=== PATIENT | female | born 1950 | race African-American/Black ===

== ENCOUNTER 2019-08-23 13:33 | Emergency (ER) | payer MEDICARE, OTHER ==
[~2019-08-23] VITALS: Ht 172.7 cm; Wt 68.0 kg
[~2019-08-23 13:33] MED LIST: ACTOS30 MG OR; BENAZEPRIL40 M1 OR; CLONIDINE0.2 MG OR; DYRENIUM50 MG OR; GLYBURID MCR6 MG OR; HYDROCHLOROT25 MG OR; METFORMIN1000 MG OR; ZOCOR40 MG OR
[2019-08-23 15:09] LABS: URINE BLOOD DIPSTICK NEGATIVE (NEGATIVE); URINE COLOR YELLOW; URINE GLUCOSE - DIPSTICK 100 mg/dL (NEGATIVE); URINE KETONE TRACE mg/dL (NEGATIVE); URINE LEUK ESTERASE NEGATIVE (NEGATIVE); URINE NITRITE - DIPSTICK NEGATIVE (Negative); URINE PROTEIN - DIPSTICK >=300 mg/dL (NEG-TRACE); URINE SPECIFIC GRAVITY >=1.030
[2019-08-23 15:13] LABS: URINE BILIRUBIN - DIPSTICK SMALL (NEGATIVE)
[2019-08-23 15:14] LABS: BARBITURATES NEGATIVE (NEGATIVE); COCAINE NEGATIVE (NEGATIVE); METHADONE NEGATIVE (NEGATIVE); OXCYCODONE NEGATIVE (NEGATIVE); TETRAHYDROCANNABIONOL NEGATIVE (NEGATIVE); TRICYLIC ANTIDEPRESSANTS NEGATIVE (NEGATIVE)
[2019-08-23 15:29] VITALS: BP 191/100
[2019-08-23 16:47] LABS: URINE SQUAMOUS EPITHELIAL CELL FEW EPI/hpf (0-FEW)
== END 2019-08-23 15:20 | disposition left against medical advice (07) ==
LOC: ED 13:33
PROVIDERS: Family Medicine
DX: R41.0 Disorientation, unspecified (principal); E11.9 Type 2 diabetes mellitus without complications; I10 Essential (primary) hypertension; Z79.84 Long term (current) use of oral hypoglycemic drugs; Z91.19 Patient's noncompliance with other medical treatment and regimen

== ENCOUNTER 2019-12-06 | Emergency (ER) | payer MEDICARE, OTHER | END 2019-12-06 11:10 | disposition home or self-care (01) | DX: S01.00XD Unspecified open wound of scalp, subsequent encounter (principal); X58.XXXD Exposure to other specified factors, subsequent encounter; E11.9 Type 2 diabetes mellitus without complications; I10 Essential (primary) hypertension ==

== ENCOUNTER 2020-01-25 | Emergency (ER) | payer MEDICARE, OTHER | END 2020-01-25 10:29 | disposition home or self-care (01) | DX: S70.02XA Contusion of left hip, initial encounter (principal); E11.9 Type 2 diabetes mellitus without complications; I10 Essential (primary) hypertension; W01.0XXA Fall on same level from slipping, tripping and stumbling without subsequent striking against object, initial encounter; Z79.84 Long term (current) use of oral hypoglycemic drugs ==

== ENCOUNTER 2021-09-12 11:18 | Observation (INO) | payer MEDICARE, OTHER ==
[~2021-09-12] VITALS: Ht 172.7 cm; Wt 65.0 kg
--- NOTE | 2021-09-12 11:25 | NUR ---
PATIENT TO ROOM 13 VIA EMS
[2021-09-12 13:11] LABS: HEMATOCRIT 29.5 % (37.0-47.0); IMMATURE GRANULOCYTES 0.2 % (0.0-5.0); MEAN CELL VOLUME 88.3 fL CALC (80.0-100.0); MEAN CORPUSCULAR HGB 26.9 pG CALC (26.0-32.0); MEAN CORPUSCULAR HGB CONC 30.5 g/dL CAL (32.0-36.0); NEUT# 8.36 thou/uL (2.00-7.15); RED BLOOD COUNT 3.34 mill/uL (4.20-5.60); RED CELL DISTRI WIDTH 14.7 % (11.5-15.5)
[2021-09-12 13:25] LABS: ALBUMIN 3.7 g/dL (3.2-5.0); BILIRUBIN, TOTAL 0.3 mg/dL (0.0-1.4); CREATININE 2.4 mg/dL (0.5-1.0); POTASSIUM 3.5 mmol/l (3.5-5.1); TOTAL PROTEIN 7.3 g/dL (6.3-8.2)
--- NOTE | 2021-09-12 13:49 | NUR ---
Reassessment of patient completed. No distress noted.
--- NOTE | 2021-09-12 15:45 | NUR ---
URINE COLLECTION SUCCESSFUL ON THIRD TRY. PATIENT STATES SHE WAS UNABLE TO COLLECT URINE IN [facility] PREVIOUSLY.
[2021-09-12 15:56] LABS: URINE BILIRUBIN - DIPSTICK NEGATIVE (NEGATIVE); URINE BLOOD DIPSTICK NEGATIVE (NEGATIVE); URINE COLOR YELLOW; URINE GLUCOSE - DIPSTICK NEGATIVE (NEGATIVE); URINE KETONE NEGATIVE (NEGATIVE); URINE LEUK ESTERASE NEGATIVE (NEGATIVE); URINE NITRITE - DIPSTICK NEGATIVE (Negative); URINE PROTEIN - DIPSTICK 100 mg/dL (NEG-TRACE); URINE UROBILINOGEN - DIPSTICK 0.2 E.U./dL (0.2)
[2021-09-12 16:03] LABS: URINE RBC TNTC RBC/hpf (0-5); URINE SQUAMOUS EPITHELIAL CELL FEW EPI/hpf (0-FEW); URINE WBC 0-2 WBC/hpf (0-5)
--- NOTE | 2021-09-12 17:39 | NUR ---
REPORT CALLED TO MED/SURG NURSE.
--- NOTE | 2021-09-12 17:46 | NUR ---
PATIENTDOSE NOT KNOW HER MEDICATIONS
--- NOTE | 2021-09-12 18:20 | NUR ---
PATIENT TO FLLOR WHEN ROOM IS CLEAN
--- NOTE | 2021-09-12 19:00 | NUR ---
TRANSITION OF CARE-REPORT TO LISA URIBE
--- NOTE | 2021-09-12 19:09 | NUR ---
TELEPHONE CALL PLACED TO PATIENT'S SON KENRICK SOUTH PER FAMILY REQUEST. [phone]
--- NOTE | 2021-09-12 19:35 | NUR ---
REPORT REC'D PT AWWARE OF PLANNED ADMISSION NO NEEW COMPLAINTS OFFERED.
[2021-09-12 19:53] VITALS: BP 177/92
--- NOTE | 2021-09-12 19:53 | NUR ---
PT ARRIVED TO FLOOR VIA WHEELCHAIR ACCOMPANIED BY ER NURSE, PT AMBULATED TO BATHROOM WITH STEADY GAIT, PT ALERT AND ORIENTED X3, ORIENTED PT TO ROOM AND CALL LIGHT, DISCUSSED POC, PT VERBALIZED UNDERSTANDING. IVF INITIATED, SKIN INTACT. TEDS APPLIED. ADMISSION ASSESSMENT COMPLETED, PT VOICES NO NEEDS OR COMPLAINTS AT THIS TIME. CALL LIGHT IN REACH,CONTINUE TO MONITOR.
[2021-09-12 21:26] VITALS: BP 122/77
--- NOTE | 2021-09-12 21:27 | NUR ---
PT ARRIVED VIA WHEELCHAIR ACCOMPANIED BY ER NURSE. PT AMBULATORY WITH STEADY GAIT TO BATHROOM. PT ALERT AND ORIENTED X3, ORIENTED PT TO ROOM AND CALL LIGHT, DISCUSSED POC. PT AGREES, MEDICATED PER MAR. IVF INITIATED, SKIN INTACT. TEDS APPLIED, ADMISSION ASSESSMENT COMPLETED, CALL LIGHT IN REACH,CONTINUE TO MONITOR.
[2021-09-13] VITALS: BP 153/75
--- NOTE | 2021-09-13 | NUR ---
PT ASSISTED TO BATHROOM, NO SIGNS OF DISTRESS NOTED, RESP EVEN AND UNLABORED. PT VOICES NO NEEDS OR COMPLAINTS AT THIS TIME. CALL LIGHT IN REACH,CONTINUE TO MONITOR.
--- NOTE | 2021-09-13 03:57 | NUR ---
PT RESTING IN BED WITH EYES CLOSED, NO SIGNS OF DISTRESS NOTED, RESP EVEN AND UNLABORED. CALL LIGHT IN REACH,CONTINUE TO MONITOR.
[2021-09-13 04:00] VITALS: BP 161/76
[2021-09-13 06:04] LABS: HEMOGLOBIN 9.5 g/dl (12.0-16.0); IMMATURE GRANULOCYTES 0.1 % (0.0-5.0); MEAN CORPUSCULAR HGB 26.9 pG CALC (26.0-32.0); MEAN CORPUSCULAR HGB CONC 31.7 g/dL CAL (32.0-36.0); NEUT# 7.02 thou/uL (2.00-7.15); RED BLOOD COUNT 3.53 mill/uL (4.20-5.60); RED CELL DISTRI WIDTH 14.6 % (11.5-15.5)
[2021-09-13 06:26] LABS: ALBUMIN 3.7 g/dL (3.2-5.0); BILIRUBIN, TOTAL 0.4 mg/dL (0.0-1.4); CREATININE 1.8 mg/dL (0.5-1.0); POTASSIUM 4.1 mmol/l (3.5-5.1); TOTAL PROTEIN 7.1 g/dL (6.3-8.2)
--- NOTE | 2021-09-13 07:45 | NUR ---
BEDSIDE REPORT RECEIVED. PT SITTING UP TO BEDSIDE AT THIS TIME EATING BREAKFAST. ASSESSMENT PERFORMED. NO COMPLAINTS. WILL CONTINUE TO MONITOR.
[2021-09-13 08:00] VITALS: BP 160/90
--- NOTE | 2021-09-13 12:45 | NUR ---
Discharge instructions given. Patient verbalizes understanding of same. Discharged in stable condition via Wheelchair to Home with family. All belongings sent with pt.
[2021-09-13 12:57] VITALS: BP 156/72
--- NOTE | 2021-09-13 12:57 | NUR ---
SPOKE WITH EXECUTIVE SECRETARY ROXANN, EXPLAINED ALL D/C INSTRUCTION AND FOLLOW UP APTS THAT NEED BE MADE. SHE VERBALIZED UNDERSTANDING.
== END 2021-09-13 12:45 | disposition home or self-care (01) ==
LOC: ED 11:18 → ED-I 16:20 → ED 17:12 → MS2 17:13
PROVIDERS: Emergency Medicine; ADMIT Internal Medicine; ATTEND Internal Medicine
DX: R55 Syncope and collapse (principal); R31.0 Gross hematuria; D50.0 Iron deficiency anemia secondary to blood loss (chronic); I10 Essential (primary) hypertension; E11.9 Type 2 diabetes mellitus without complications; Z79.84 Long term (current) use of oral hypoglycemic drugs; Z20.822 Contact with and (suspected) exposure to COVID-19
CPT/HCPCS: G0378; J1650

== ENCOUNTER 2022-11-20 19:36 | Emergency (ER) | payer MEDICARE, OTHER ==
[~2022-11-20] VITALS: Ht 172.7 cm; Wt 72.7 kg
[2022-11-20] VITALS (13 sets, daily range): BP systolic 155–199; BP diastolic 66–121
[2022-11-20 20:07] LABS: BASO% 0.2 % (0-3); EOS% 0.1 % (0-8); HEMATOCRIT 31.3 % (37.0-47.0); HEMOGLOBIN 9.9 g/dl (12.0-16.0); IMMATURE GRANULOCYTES 0.2 % (0.0-5.0); LYMPH% 2.2 % (15-41); MEAN CELL VOLUME 92.9 fL CALC (80.0-100.0); MEAN CORPUSCULAR HGB 29.4 pG CALC (26.0-32.0); MEAN CORPUSCULAR HGB CONC 31.6 g/dL CAL (32.0-36.0); MONO% 4.1 % (2-13); NEUT# 12.44 thou/uL (2.00-7.15); NEUT% 93.2 % (42-76); RED BLOOD COUNT 3.37 mill/uL (4.20-5.60); RED CELL DISTRI WIDTH 13.9 % (11.5-15.5)
[2022-11-20 20:17] LABS: ALBUMIN 3.7 g/dL (3.2-5.0); ALKALINE PHOSPHATASE 125 u/l (38-126); ANION GAP 12 (6-22 (CALC)); BILIRUBIN, TOTAL 0.3 mg/dL (0.0-1.4); BUN 36 mg/dL (8-23); BUN/CREATININE RATIO 13 (12-20 (CALC)); CARBON DIOXIDE 21 mmol/l (22-30); CHLORIDE 108 mmol/l (95-108); CPK 109 u/l (30-165); CREATININE 2.8 mg/dL (0.5-1.0); GFR FOR AFR.AMER. 20 ML/MIN (>=60 (CALC)); GFR OTHER RACES 17 ML/MIN (>=60 (CALC)); POTASSIUM 3.8 mmol/l (3.5-5.1); SGOT/AST 36 u/l (9-36); SODIUM 138 mmol/l (137-146); TOTAL PROTEIN 7.3 g/dL (6.3-8.2)
[2022-11-20 20:29] LABS: MYOGLOBIN 416 ng/mL (0 - 62)
[2022-11-20 21:45] LABS: URINE BILIRUBIN - DIPSTICK NEGATIVE (NEGATIVE); URINE BLOOD DIPSTICK NEGATIVE (NEGATIVE); URINE COLOR YELLOW; URINE GLUCOSE - DIPSTICK 100 mg/dL (NEGATIVE); URINE KETONE NEGATIVE (NEGATIVE); URINE LEUK ESTERASE NEGATIVE (NEGATIVE); URINE PH 5.5 (4.5-8.0); URINE PROTEIN - DIPSTICK 100 mg/dL (NEG-TRACE); URINE SPECIFIC GRAVITY 1.025; URINE UROBILINOGEN - DIPSTICK 0.2 E.U./dL (0.2)
[2022-11-20 21:47] LABS: URINE NITRITE - DIPSTICK NEGATIVE (Negative)
[2022-11-20 21:50] LABS: URINE BACTERIA FEW hpf; URINE RBC 0-2 RBC/hpf (0-5)
[2022-11-20 21:51] LABS: URINE SQUAMOUS EPITHELIAL CELL FEW EPI/hpf (0-FEW)
[2022-11-20] MEDS ORDERED: TAM75CAP PO (22:13)
== END 2022-11-20 22:53 | disposition home or self-care (01) ==
LOC: ED 19:36
PROVIDERS: Family Medicine
DX: J10.1 Influenza due to other identified influenza virus with other respiratory manifestations (principal); I10 Essential (primary) hypertension; E11.9 Type 2 diabetes mellitus without complications; Z79.84 Long term (current) use of oral hypoglycemic drugs; Z20.822 Contact with and (suspected) exposure to COVID-19

== ENCOUNTER 2023-08-20 13:05 | Inpatient (IN) | payer MEDICARE, OTHER ==
[~2023-08-20] VITALS: Ht 172.7 cm; Wt 63.3 kg
[2023-08-20] VITALS (14 sets, daily range): BP systolic 114–167; BP diastolic 56–95
[~2023-08-20 13:05] MED LIST changes: +TAM75CAP PO
[2023-08-20 13:41] LABS: BASO% 0.2 % (0-3); EOS% 0.6 % (0-8); HEMOGLOBIN 11.1 g/dl (12.0-16.0); IMMATURE GRANULOCYTES 0.3 % (0.0-5.0); LYMPH% 11.2 % (15-41); MEAN CELL VOLUME 93.3 fL CALC (80.0-100.0); MEAN CORPUSCULAR HGB 29.6 pG CALC (26.0-32.0); MEAN CORPUSCULAR HGB CONC 31.7 g/dL CAL (32.0-36.0); MONO% 5.6 % (2-13); NEUT# 9.03 thou/uL (2.00-7.15); NEUT% 82.1 % (42-76); RED BLOOD COUNT 3.75 mill/uL (4.20-5.60); RED CELL DISTRI WIDTH 12.5 % (11.5-15.5)
[2023-08-20 13:59] LABS: INTERNATIONAL NORMALIZED RATIO 1.2 RATIO (0.7-1.3)
[2023-08-20 14:05] LABS: ALBUMIN 4.1 g/dL (3.2-5.0); ANION GAP 16 (6-22 (CALC)); BUN 41 mg/dL (8-23); CALCULATED LDLCHOLESTEROL 134 mg/dL (62-129 (CALC)); CARBON DIOXIDE 20 mmol/l (22-30); CHLORIDE 107 mmol/l (95-108); HDL CHOLESTEROL 54 mg/dL (39.0-59.0); SGOT/AST 33 u/l (9-36); SODIUM 139 mmol/l (137-146); TOTAL CHOLESTEROL 215 mg/dl (0-199); TOTAL PROTEIN 8.2 g/dL (6.3-8.2); TOTAL TRIGLYCERIDES 137 mg/dl (0-149); VLDL CHOLESTROL 27 mg/dl (0-48 (CALC))
[2023-08-20 14:11] LABS: ALKALINE PHOSPHATASE 188 u/l (38-126); BILIRUBIN, TOTAL 0.5 mg/dL (0.02-1.3); BUN/CREATININE RATIO 10 (12-20 (CALC)); CREATININE 4.3 mg/dL (0.5-1.0); GFR FOR AFR.AMER. 12 ML/MIN (>=60 (CALC)); GFR OTHER RACES 10 ML/MIN (>=60 (CALC))
[2023-08-20 14:41] LABS: URINE BACTERIA FEW hpf; URINE BLOOD DIPSTICK Negative (NEGATIVE); URINE COLOR Yellow; URINE GLUCOSE - DIPSTICK Negative (NEGATIVE); URINE KETONE Trace mg/dL (NEGATIVE); URINE LEUK ESTERASE Small (NEGATIVE); URINE NITRITE - DIPSTICK Negative (Negative); URINE PH 5.5 (4.5-8.0); URINE PROTEIN - DIPSTICK >=300 mg/dL (NEG-TRACE); URINE SPECIFIC GRAVITY >=1.030; URINE SQUAMOUS EPITHELIAL CELL FEW EPI/hpf (0-FEW); URINE UROBILINOGEN - DIPSTICK 0.2 E.U./dL (0.2)
[2023-08-20] MEDS ORDERED: METFORMIN HCL1000 MG PO (15:31)
[2023-08-20] MEDS ORDERED: METOPROL TAR25 M1 PO (15:33)
[2023-08-20] MEDS ORDERED: APRESOLINE50 MG PO (15:34)
[2023-08-20] MEDS ORDERED: SEROQUEL25 MG (15:36)
[2023-08-20] MEDS ORDERED: NIFEDIPINE90 M1 PO (15:37)
[2023-08-20] MEDS ORDERED: ELIQUIS5 MG PO (15:38)
[2023-08-21 06:08] LABS: BASO% 0.4 % (0-3); EOS% 1.5 % (0-8); HEMOGLOBIN 9.8 g/dl (12.0-16.0); IMMATURE GRANULOCYTES 0.2 % (0.0-5.0); LYMPH% 20.5 % (15-41); MEAN CELL VOLUME 92.8 fL CALC (80.0-100.0); MEAN CORPUSCULAR HGB 29.3 pG CALC (26.0-32.0); MEAN CORPUSCULAR HGB CONC 31.6 g/dL CAL (32.0-36.0); MONO% 7.4 % (2-13); NEUT# 5.69 thou/uL (2.00-7.15); RED BLOOD COUNT 3.34 mill/uL (4.20-5.60); RED CELL DISTRI WIDTH 12.3 % (11.5-15.5)
[2023-08-21 06:23] LABS: ALBUMIN 3.4 g/dL (3.2-5.0); BILIRUBIN, TOTAL 0.4 mg/dL (0.02-1.3); CREATININE 3.9 mg/dL (0.5-1.0); POTASSIUM 3.8 mmol/l (3.5-5.1)
[2023-08-21 06:25] LABS: TOTAL PROTEIN 6.4 g/dL (6.3-8.2)
[2023-08-21 11:48] LABS: CHOLESTEROL HDL RATIO 3.7 (<4.4 (CALC))
[2023-08-21 19:48] VITALS: BP 158/87
[2023-08-22] VITALS (25 sets, daily range): BP systolic 52–220; BP diastolic 29–93
[2023-08-22 05:42] LABS: HEMATOCRIT 27.3 % (37.0-47.0); HEMOGLOBIN 8.9 g/dl (12.0-16.0); MEAN CELL VOLUME 93.2 fL CALC (80.0-100.0); MEAN CORPUSCULAR HGB 30.4 pG CALC (26.0-32.0); MEAN CORPUSCULAR HGB CONC 32.6 g/dL CAL (32.0-36.0); RED BLOOD COUNT 2.93 mill/uL (4.20-5.60); RED CELL DISTRI WIDTH 12.5 % (11.5-15.5)
[2023-08-22 06:01] LABS: BILIRUBIN, TOTAL 0.3 mg/dL (0.02-1.3); CREATININE 4.1 mg/dL (0.5-1.0); POTASSIUM 4.5 mmol/l (3.5-5.1); TOTAL PROTEIN 5.8 g/dL (6.3-8.2)
[2023-08-22 06:03] LABS: CREATININE 4.1 mg/dL (0.5-1.0); POTASSIUM 4.4 mmol/l (3.5-5.1)
[2023-08-23 05:46] LABS: HEMATOCRIT 31.3 % (37.0-47.0); HEMOGLOBIN 9.9 g/dl (12.0-16.0); MEAN CELL VOLUME 93.2 fL CALC (80.0-100.0); MEAN CORPUSCULAR HGB 29.5 pG CALC (26.0-32.0); MEAN CORPUSCULAR HGB CONC 31.6 g/dL CAL (32.0-36.0); RED BLOOD COUNT 3.36 mill/uL (4.20-5.60); RED CELL DISTRI WIDTH 12.6 % (11.5-15.5)
[2023-08-23 06:06] LABS: ALBUMIN 3.2 g/dL (3.2-5.0); BILIRUBIN, TOTAL 0.4 mg/dL (0.02-1.3); CREATININE 3.9 mg/dL (0.5-1.0); MAGNESIUM 2.1 mg/dL (1.6-2.3); POTASSIUM 4.5 mmol/l (3.5-5.1); TOTAL PROTEIN 6.3 g/dL (6.3-8.2)
[2023-08-23 08:53] VITALS: BP 134/71
[2023-08-23 14:51] VITALS: BP 150/85
[2023-08-23 14:53] VITALS: BP 150/85
[2023-08-23] MEDS ORDERED: ATORVASTATIN CA40 MG PO (14:59)
[2023-08-23] MEDS ORDERED: ASPIRIN81 MG PO (15:05)
== END 2023-08-23 16:45 | disposition home or self-care (01) | DRG 65 ==
LOC: ED 13:05 → ED-I 14:00 → ED 15:06 → ICU 15:07
PROVIDERS: Family Medicine; Internal Medicine Nephrology; Student in an Organized Health Care Education/Training Program; ADMIT Student in an Organized Health Care Education/Training Program; ATTEND Student in an Organized Health Care Education/Training Program
DX: I63.81 Other cerebral infarction due to occlusion or stenosis of small artery (principal); N17.9 Acute kidney failure, unspecified; N39.0 Urinary tract infection, site not specified; E87.20 Acidosis, unspecified; N18.4 Chronic kidney disease, stage 4 (severe); I45.2 Bifascicular block; R41.0 Disorientation, unspecified; R29.701 NIHSS score 1; I95.9 Hypotension, unspecified; E86.9 Volume depletion, unspecified; I12.9 Hypertensive chronic kidney disease with stage 1 through stage 4 chronic kidney disease, or unspecified chronic kidney disease; E11.22 Type 2 diabetes mellitus with diabetic chronic kidney disease; D63.1 Anemia in chronic kidney disease; F03.90 Unspecified dementia, unspecified severity, without behavioral disturbance, psychotic disturbance, mood disturbance, and anxiety; K59.00 Constipation, unspecified; B95.1 Streptococcus, group B, as the cause of diseases classified elsewhere; E78.5 Hyperlipidemia, unspecified; Z79.84 Long term (current) use of oral hypoglycemic drugs; Z79.01 Long term (current) use of anticoagulants; Z86.73 Personal history of transient ischemic attack (TIA), and cerebral infarction without residual deficits; Z20.822 Contact with and (suspected) exposure to COVID-19

== ENCOUNTER 2024-01-04 11:04 | Observation (INO) | payer MEDICARE, OTHER ==
[~2024-01-04] VITALS: Ht 172.7 cm; Wt 54.4 kg
[2024-01-04] VITALS (29 sets, daily range): BP systolic 157–228; BP diastolic 84–165
[~2024-01-04 11:04] MED LIST changes: +APRESOLINE50 MG PO; +ASPIRIN81 MG PO; +ATORVASTATIN CA40 MG PO; +ELIQUIS5 MG PO; +METFORMIN HCL1000 MG PO; +METOPROL TAR25 M1 PO; +NIFEDIPINE90 M1 PO; +SEROQUEL25 MG
--- NOTE | 2024-01-04 11:04 | NUR ---
PATIENT ARRIVED TO ER VIA EMS. PATIENT AWAKE AND STABLE. NO DISTRESS NOTED. PHYSICIAN NOTIFIED.
--- NOTE | 2024-01-04 12:00 | NUR ---
pt in room, awaiting orders. pt confused with dementia but is resting comfortably.
--- NOTE | 2024-01-04 13:01 | NUR ---
started iv in left ac, pt tolerated well. ekg complete.
[2024-01-04 13:20] LABS: BASO% 0.2 % (0-3); EOS% 0.2 % (0-8); HEMOGLOBIN 11.1 g/dl (12.0-16.0); IMMATURE GRANULOCYTES 0.1 % (0.0-5.0); LYMPH% 10.2 % (15-41); MEAN CORPUSCULAR HGB 29.1 pG CALC (26.0-32.0); MEAN CORPUSCULAR HGB CONC 29.3 g/dL CAL (32.0-36.0); MONO% 4.6 % (2-13); NEUT# 7.84 thou/uL (2.00-7.15); NEUT% 84.7 % (42-76); RED BLOOD COUNT 3.81 mill/uL (4.20-5.60); RED CELL DISTRI WIDTH 12.9 % (11.5-15.5)
[2024-01-04] MEDS ORDERED: cloNIDine HCL 0.1 MG/TAB PO ONE (13:20)
[2024-01-04 13:23] LABS: HEMATOCRIT 37.9 % (37.0-47.0); MEAN CELL VOLUME 99.5 fL CALC (80.0-100.0)
--- NOTE | 2024-01-04 14:10 | NUR ---
Report from RONY Mar. Patient alert to person only BP elevated. She was medicated with Clonidine 0.2 mg PO.
--- NOTE | 2024-01-04 14:30 | NUR ---
patient attempting to get out of bed. placed on bedside commode unable to urinate.
[2024-01-04] MEDS ORDERED: LABETALOL HCL 20 MG/ 4 ML CARTRG IV ONE (14:35)
--- NOTE | 2024-01-04 15:00 | NUR ---
straight cath completed on pt to collect urine sample, she tolerated well. BP remains elevated.
[2024-01-04 15:02] LABS: POTASSIUM 3.9 mmol/l (3.5-5.1)
[2024-01-04 15:06] LABS: ALBUMIN 4.3 g/dL (3.2-5.0); BILIRUBIN, TOTAL 0.7 mg/dL (0.02-1.3); CREATININE 4.9 mg/dL (0.5-1.0)
--- NOTE | 2024-01-04 15:23 | NUR ---
medicated as per ordered for elevated BP. pt resting in stretcher with eyes closed.
[2024-01-04 15:29] LABS: URINE BILIRUBIN - DIPSTICK Negative (NEGATIVE); URINE BLOOD DIPSTICK Small (NEGATIVE); URINE GLUCOSE - DIPSTICK Negative (NEGATIVE); URINE KETONE Negative (NEGATIVE); URINE LEUK ESTERASE Negative (NEGATIVE); URINE NITRITE - DIPSTICK Negative (Negative); URINE PROTEIN - DIPSTICK >=300 mg/dL (NEG-TRACE); URINE SPECIFIC GRAVITY 1.025; URINE UROBILINOGEN - DIPSTICK 0.2 E.U./dL (0.2)
[2024-01-04] MEDS ORDERED: SODIUM CHLORIDE 0.9% 1,000 ML IV ONE (15:35)
[2024-01-04 15:37] LABS: URINE COLOR Yellow
--- NOTE | 2024-01-04 15:54 | NUR ---
EBONIE BRYAN AT BEDSID TO SIT WITH PATIENT. SHE IS RESTING COMFORTABLY.
[2024-01-04] MEDS ORDERED: hydrALAZINE HCL 20 MG/ML VIAL(1 ML) IV ONE (17:35)
[2024-01-04] MEDS ORDERED: ACETAMINOPHEN 325 MG/TAB PO PRN (17:45)
[2024-01-04] MEDS ORDERED: HALOPERIDOL LACTATE 5 MG/ML SDV IV PRN (17:45)
[2024-01-04] MEDS ORDERED: MAGNESIUM HYDROXIDE 30 ML UDC PO PRN (17:45)
[2024-01-04] MEDS ORDERED: SODIUM CHLORIDE 0.9% 1,000 ML IV PRN (17:45)
[2024-01-04] MEDS ORDERED: LABETALOL HCL 20 MG/ 4 ML CARTRG IV PRN (17:50)
--- NOTE | 2024-01-04 19:01 | NUR ---
REPORT RECEIEVED FROM Marilee SHELDON RN
--- NOTE | 2024-01-04 19:58 | NUR ---
REPORT GIVEN TO Kathe RAY RN.
--- NOTE | 2024-01-04 20:29 | NUR ---
PATIENT TRANSPORTED TO ICU BED 3, CARE HANDED OVER TO Kathe RAY RN.
--- NOTE | 2024-01-04 20:30 | NUR ---
REPORT RECEIVED FROM NURSE DUNNE IN ER. PATIENT ARRIVED TO ICU RM 3 AT 2009 VIA STRETCHER. PATIENT RESPIRATIONS EVEN AND UNLABORED ON ROOM AIR. PATIENT MOOD PLEASANT AND COOPERATIVE. DENIES PAIN OR DISCOMFORT. NO SIGNS OF DISTRESS NOTED. PATIENT ABLE TO STATE NAME IS ALERT TO SELF ONLY. SKIN INTACT. ORIENTED TO ROOM AND CALL LIGHT. WILL ANTICIPATE NEEDS R/T DX OF DEMENTIA. PATIENT DECLINES TO CHANGE IN TO HOSPITAL GOWN AT THIS TIME BUT AGREEABLE TO CHANGE LATER. SAFETY MEASURES IN PLACE.
[2024-01-04] MEDS ORDERED: APIXABAN BASE 2.5 MG/TAB TAB PO SCH (21:00)
[2024-01-04] MEDS ORDERED: ATORVASTATIN CALCIUM 40 MG/TAB PO SCH (21:00)
[2024-01-04] MEDS ORDERED: QUEtiapine FUMERATE 25 MG/TAB PO SCH (21:00)
[2024-01-04] MEDS ORDERED: METOPROLOL TARTRATE 50 MG/TAB PO SCH (21:00)
--- NOTE | 2024-01-04 23:53 | NUR ---
PATIENT ASLEEP IN BED. RESPIRATIONS EVEN AND UNLABORED ON ROOM AIR. DROPLET PRECAUTIONS MAINTAINED R/T DX OF COVID. IV FLUIDS IN PLACE. NO SIGNS OF DISTRESS NOTED. SAFETY MEASURES IN PLACE.
--- NOTE | 2024-01-05 02:09 | NUR ---
PATIENT ALSEEP IN BED. RESPIRATIONS EVEN AND UNLABORED ON ROOM AIR. PATIENT SAT UP IN BED FOR A FEW MOMENTS THEN LAID BACK DOWN. NO CONCERNS VOICED. NO SIGNS OF DISTRESS NOTED. SAFETY MEASURES IN PLACE,
--- NOTE | 2024-01-05 04:20 | NUR ---
PATIENT ASLEEP IN BED. RESPIRATIONS EVEN AND UNALBORED ON ROOM AIR. IV FLUIDS CONTINUE. DROPLET PRECAUTIONS MAINTAINED. CALL LIGHT WITHIN REACH. NEEDS ANTICIPATED.
--- NOTE | 2024-01-05 08:22 | NUR ---
PT ALERT, SITTING UP IN BED, JUST STARES AT YOU WHEN STAFF IS TALKING WITH HER. BREAKFAST TRAY BROUGHT IN AND PT PICKED UP FORK TO EAT, VITAL SIGNS STABLE. WILL CONTINUE TO MONITER
[2024-01-05 08:54] VITALS: BP 128/79
[2024-01-05] MEDS ORDERED: NIFEdipine 60 MG TAB PO SCH (09:00)
[2024-01-05 09:12] LABS: BASO% 0.1 % (0-3); EOS% 0.6 % (0-8); HEMOGLOBIN 9.5 g/dl (12.0-16.0); IMMATURE GRANULOCYTES 0.3 % (0.0-5.0); LYMPH% 10.3 % (15-41); MEAN CELL VOLUME 93.9 fL CALC (80.0-100.0); MEAN CORPUSCULAR HGB 30.3 pG CALC (26.0-32.0); MEAN CORPUSCULAR HGB CONC 32.2 g/dL CAL (32.0-36.0); MONO% 6.7 % (2-13); NEUT# 6.45 thou/uL (2.00-7.15); RED BLOOD COUNT 3.14 mill/uL (4.20-5.60); RED CELL DISTRI WIDTH 12.8 % (11.5-15.5)
[2024-01-05 09:14] LABS: HEMATOCRIT 29.5 % (37.0-47.0)
[2024-01-05 09:36] LABS: BILIRUBIN, TOTAL 0.7 mg/dL (0.02-1.3); MAGNESIUM 1.8 mg/dL (1.6-2.3); POTASSIUM 4.5 mmol/l (3.5-5.1)
[2024-01-05 09:44] LABS: TOTAL PROTEIN 6.1 g/dL (6.3-8.2)
--- NOTE | 2024-01-05 11:25 | NUR ---
PHYSICAL THERAPY AT BEDSIDE, PT WAS ABLE TO GET UP AND WALK WITH WALKER WITH MIN HELP.
--- NOTE | 2024-01-05 15:08 | NUR ---
PT DISCHARGED WITH INST. PER W/C
[2024-01-11] MEDS ORDERED: cloNIDine TRANSDERMAL 0.2MG/24 HR 7-DAY PATCH TD SCH (09:00)
== END 2024-01-05 15:00 | disposition home health service (06) ==
LOC: ED 11:04 → ED-I 15:20 → ED 17:46 → ICU 17:47
PROVIDERS: Nurse Practitioner; ADMIT Student in an Organized Health Care Education/Training Program; ATTEND Student in an Organized Health Care Education/Training Program
DX: N17.9 Acute kidney failure, unspecified (principal); I12.9 Hypertensive chronic kidney disease with stage 1 through stage 4 chronic kidney disease, or unspecified chronic kidney disease; E11.22 Type 2 diabetes mellitus with diabetic chronic kidney disease; N18.4 Chronic kidney disease, stage 4 (severe); I16.1 Hypertensive emergency; U07.1 COVID-19; F03.90 Unspecified dementia, unspecified severity, without behavioral disturbance, psychotic disturbance, mood disturbance, and anxiety; R62.7 Adult failure to thrive; Z86.73 Personal history of transient ischemic attack (TIA), and cerebral infarction without residual deficits